=== PATIENT | female | born 1980 | race Caucasian/White ===

== ENCOUNTER → 2018-12-13 13:01 | Outpatient (CLI) | payer MEDICAID, SELFPAY ==
[2018-12-13 16:07] LABS: Chlamydia Trachomatis by PCR Negative (Negative); Neisserai gonorrhoeae by PCR Negative (Negative); Probe Check PASS; Sample Adequacy Control PASS; Specimen Processing Control PASS
[2018-12-18 13:26] LABS: HPV Reflexed? NOT INDICATED
== END ==
LOC: WOBLAB 13:03 → LABSPEC 13:03
PROVIDERS: Visit Provider Obstetrics & Gynecology
DX: Z12.4 Encounter for screening for malignant neoplasm of cervix (principal); Z11.3 Encounter for screening for infections with a predominantly sexual mode of transmission; Z32.01 Encounter for pregnancy test, result positive
CPT/HCPCS: 87491; 87591; 88175; G0145

== ENCOUNTER → 2018-12-27 11:58 | Outpatient (CLI) | payer MEDICAID, SELFPAY ==
[2018-12-27 13:39] LABS: Color, Urine Yellow (Yellow); Glucose, Dipstick Normal (Normal); Ketone-Dipstick Negative (Negative); Leukocyte Esterase-Dipstick Negative /ul (Negative); Nitrite-Dipstick Negative (Negative); Occult Blood-Urine 150 /ul (Negative); Protein-Dipstick 30 mg/dl (Negative); Urine Bilirubin Dipstick Negative (Negative); Urine Clarity Clear (Clear); Urine Urobilinogen Normal (Normal)
[2018-12-27 13:50] LABS: COTININE Drug Screen Negative (<200 ng/mL)
[2018-12-27 14:03] LABS: Amphetamine Urine VISTA POSITIVE (<1000 ng/mL); Barbiturate Urine VISTA NEGATIVE (< 200 ng/mL); Benzodiazepine Urine VISTA NEGATIVE (< 200 ng/mL); Cocaine Urine VISTA NEGATIVE (< 300 ng/mL); Ecstacy Urine VISTA NEGATIVE (< 500 ng/mL); Methadone Urine VISTA NEGATIVE (< 300 ng/mL); PCP Urine VISTA NEGATIVE (< 25 ng/mL); THC Urine VISTA NEGATIVE (< 50 ng/mL); Vista UDS pH Range 5
[2018-12-27 16:04] LABS: Absolute Lymphocyte Count 2.21 X10^3/ul (0.83-4.51); Absolute Neutrophil Count 9.2 X10^3/uL (2.0-7.7); Basophil# 0.04 X10^3/uL; Basophil% 0.3 % (0-1); Eosinophil# 0.44 X10^3/uL; Eosinophils% 3.3 % (0-5); Hematocrit 36.7 % (37-47); Hemoglobin 11.7 g/dl (12.0-15.0); Lymphocyte # 2.21 X10^3/ul (4.0); Lymphocyte % 16.7 % (19-41); Mean Corp Hgb Conc 31.9 g/gl (32-36); Mean Corpuscular Hgb 25.5 pg (27.0-32.0); Mean Corpuscular Volume 80.1 fL (81-99); Mean Platelet Vol. 9.3 fl (6.2-12.0); Monocyte# 1.22 X10^3/uL; Monocyte% 9.2 % (0-10); Neutrophil # 9.17 X10^3/uL (2.7-7.7); Neutrophil % 69.6 % (47-70); Platelet Count 380 K/mm3 (150-450); RBC Distribution Width CV 14.8 % (11.6-14.6); RBC Distribution Width SD 42.6 fl (35.1-43.9); Red Blood Count 4.58 M/mm3 (4.2-5.4); White Blood Count 13.2 K/mm3 (4.4-11.0)
[2018-12-27 16:06] LABS: POSITIVE COUNT NO; POSITIVE DIFFERENTIAL NO; POSITIVE MORPHOLOGY NO
[2018-12-27 16:10] LABS: Thyroid Stim Hormone (TSH) 3.13 uIU/mL (0.358-3.74)
[2018-12-27 16:56] LABS: HIV - WCH Non-Reactive (Nonreactive); Rubella IgG 31.8 IU/mL
[2018-12-28 02:32] LABS: Prenatal RPR NONREACTIVE (NONREACTIVE)
[2018-12-31 11:48] LABS: HEPATITIS B SURFACE AG Negative (Negative); Hep C Antibodies <0.1 s/co ratio (0.0-0.9)
== END ==
PROVIDERS: Visit Provider Obstetrics & Gynecology
DX: Z34.82 Encounter for supervision of other normal pregnancy, second trimester (principal)
CPT/HCPCS: 36415; 80307; 81002; 84443; 85025; 86703; 86762; 86803; 87340

== ENCOUNTER 2019-01-18 02:45 | Outpatient (CLI) | payer MEDICAID, SELFPAY ==
[2019-01-18 03:29] VITALS: BMI 36.3
[2019-01-18 03:32] LABS: White Blood Cells 0 SEEN /hpf (0-5)
[2019-01-18 03:35] LABS: Color, Urine Yellow (Yellow); Glucose, Dipstick 50 mg/dl (Normal); Leukocyte Esterase-Dipstick Negative /ul (Negative); Nitrite-Dipstick Negative (Negative); Occult Blood-Urine 25 /ul (Negative); Protein-Dipstick 30 mg/dl (Negative); Specific Gravity, Urine 1.025 (1.002-1.030); Urine Bilirubin Dipstick Negative (Negative); Urine Clarity Sl. Cloudy (Clear); Urine Urobilinogen 1 mg/dl (Normal)
[2019-01-18 03:38] LABS: Ketone-Dipstick 150 mg/dl (Negative)
[2019-01-18 03:40] LABS: Bacteria RARE /hpf (None Seen); Mucous, Urine 2+ /hpf (<or=2+); Red Blood Cells-Urine 0-5 SEEN /hpf (0-5); Squamous Epithelial Cells - UA 0-5 SEEN /hpf (5-10)
[2019-01-18 04:50] LABS: ROM Internal Control Test YES-OK TO RESULT pt. (Internal QC); ROM Patient Test Negative (Negative)
[2019-01-18] MEDS: 0.9% Normal Saline 1,000 ML 250 ML IV (05:25)
--- NOTE | 2019-01-18 09:19 | OB.TRI.HP_ITS ---
- Problem List (1) 27 weeks gestation of Status: Acute (2) False labor before 37 completed weeks of gestation Status: Acute Qualifiers: Trimester: second trimester Qualified Code(s): O47.02 - False labor before 37 completed weeks of gestation, second trimester History of Present Illness Date of Service: 01/17/19 Was patient seen by the physician?: No Reason For Visit: RULE OUT LABOR Final DELVIN: 04/18/19 Final DELVIN Source: US >20 weeks Gestational age: 27 Weeks and 0 Days History of Present Illness: 38yo @ 27wga with recent asthma exacerbation on oral steroids c/o contractions. Allergies No Known Allergies Allergy (Verified 01/18/19 04:19) - Pertinent Past Medical History Medical History: Past Medical History (Last Updated 01/18/19 @ 09:27 by Fabi Steel MD) Asthma Bipolar 2 disorder Laboratory Studies: Laboratory Tests 01/18/19 01/18/19 Range/Units 04:25 03:25 Urine Color Yellow (Yellow) Urine Clarity Sl. Cloudy (Clear) Urine pH 6.0 (5.0 - 8.0) Ur Specific [place] 1.025 (1.002-1.030) Urine Protein 30 H (Negative) mg/dl Urine Glucose (UA) 50 H (Normal) mg/dl Urine Ketones 150 H (Negative) mg/dl Urine Occult Blood 25 H (Negative) /ul Urine Nitrite Negative (Negative) Urine Bilirubin Negative (Negative) mg/dL Urine Urobilinogen 1 H (Normal) mg/dl Ur Leukocyte Esterase Negative (Negative) /ul Urine RBC 0-5 SEEN (0-5) /hpf Urine WBC 0 SEEN (0-5) /hpf Ur Squamous Epith Cells 0-5 SEEN (5-10) /hpf Urine Bacteria RARE (None Seen) /hpf Urine Mucus 2+ (<or=2+) /hpf Vag Amniotic Fld Detect Negative (Negative) NST - FHR Rate Baby A Baseline: 150 Variability:: Moderate Accelerations:: 10 x 10 NST Reactive:: Yes, Appropriate for gestational age FHR Category:: Category I Uterine Activity:: irritability Impression/Plan SVE c/l/h by RN exam Ucx pending d/c home f/u next week
== END 2019-01-18 06:50 | disposition home or self-care (01) ==
LOC: WPOUT 03:19 → WP 03:20
PROVIDERS: Visit Provider Obstetrics & Gynecology
DX: O47.02 False labor before 37 completed weeks of gestation, second trimester (principal); O99.512 Diseases of the respiratory system complicating pregnancy, second trimester; J45.909 Unspecified asthma, uncomplicated; O09.522 Supervision of elderly multigravida, second trimester; Z3A.27 27 weeks gestation of pregnancy
CPT/HCPCS: 96360; 59025; 59050; 81001; 84112; 87086; 99218; G0378

== ENCOUNTER → 2019-01-29 10:23 | Outpatient (CLI) | payer MEDICAID, SELFPAY ==
[2019-01-18 03:29] VITALS: BMI 36.3
[2019-01-29 14:07] LABS: Hematocrit 35.9 % (37-47); Hemoglobin 11.5 g/dL (12.0-15.0); Mean Corpuscular Hgb 24.7 pg (27.0-32.0); Mean Platelet Vol. 9.6 fl (6.2-12.0); Platelet Count 396 K/mm3 (150-450); RBC Distribution Width CV 14.9 % (11.6-14.6); RBC Distribution Width SD 40.3 fl (35.1-43.9); Red Blood Count 4.66 M/mm3 (4.2-5.4); White Blood Count 15.5 K/mm3 (4.4-11.0)
[2019-01-29 14:18] LABS: Glucose Challenge Gest 1H 50g 175 mg/dL (70-140)
[2019-01-30 13:51] LABS: Ferritin 8 ng/mL (8-252)
== END ==
PROVIDERS: Visit Provider Obstetrics & Gynecology
DX: Z34.83 Encounter for supervision of other normal pregnancy, third trimester (principal)
CPT/HCPCS: 36415; 82728; 82950; 85027; 87086; 87088; 87186